=== PATIENT | female | born 1990 | race Hispanic/Latino ===

== ENCOUNTER 2018-05-23 09:13 | Emergency (ER) | payer BC, MEDICAID ==
[2018-05-23 09:23] VITALS: BMI 42.3
[2018-05-23 09:26] VITALS: TEMP 98.6
--- NOTE | 2018-05-23 09:57 | ED PDOC ---
Arrival/HPI - General Chief Complaint: Chest Pain Historian: Patient - History of Present Illness Narrative History of Present Illness (Text): 05/23/18 09:59 28 y/o female, no significant pmh, nkda, c/o epigastric pain x 1 months with no fall or trauma. Pt. stated that she has this pain on going for over 1 month, [place] [facility] [place] told it's gastritis and discharge home with pepcid but never resolved pain, no night sweat, no coughing, no shortness of breath or palpitation, no night sweat, no dizziness, no change in vision, no diarrhea, no lower abdominal pain, no other medical or psychological complaints. Past Medical History - Provider Review Nursing Documentation Reviewed: Yes - Infectious Disease Hx of Infectious Diseases: None - Reproductive Menopause: No - Gastrointestinal Hx Gastritis: Yes - Psychiatric Hx Substance Use: No - Anesthesia Hx Anesthesia: No Hx Anesthesia Reactions: No Hx Malignant Hyperthermia: No Family/Social History - Physician Review Nursing Documentation Reviewed: Yes Family/Social History: Unknown Family HX Smoking Status: Never Smoked Hx Alcohol Use: No Hx Substance Use: No Allergies/Home Meds Allergies/Adverse Reactions: Allergies No Known Allergies Allergy (Verified 05/23/18 09:57) Review of Systems - Review of Systems Constitutional: absent: Fatigue, Fevers Eyes: absent: Vision Changes ENT: absent: Hearing Changes Respiratory: absent: SOB, Cough Cardiovascular: absent: Chest Pain Gastrointestinal: Abdominal Pain. absent: Diarrhea, Nausea, Vomiting Genitourinary Female: absent: Dysuria, Frequency, Vaginal Bleeding Musculoskeletal: absent: Arthralgias, Back Pain Neurological: absent: Headache, Dizziness Psychiatric: absent: Anxiety, Depression, Suicidal Ideation Physical Exam Vital Signs Reviewed: Yes Vital Signs Temp Pulse Resp BP Pulse Ox 05/23/18 09:23 98.6 F 56 L 20 164/95 H 99 Temperature: Afebrile Blood Pressure: Hypertensive Pulse: Bradycardic Respiratory Rate: Normal Appearance: Positive for: Well-Appearing, Non-Toxic, Comfortable Pain Distress: None Mental Status: Positive for: Alert and Oriented X 3 - Systems Exam Head: Present: Atraumatic, Normocephalic Pupils: Present: PERRL Extroacular Muscles: Present: EOMI Conjunctiva: Present: Normal Mouth: Present: Moist Mucous Membranes Neck: Present: Normal Range of Motion Respiratory/Chest: Present: Clear to Auscultation, Good Air Exchange. No: Respiratory Distress, Accessory Muscle Use Cardiovascular: Present: Regular Rate and Rhythm, Normal S1, S2. No: Murmurs Abdomen: Present: Tenderness (epigastric tenderness. ), Normal Bowel Sounds. No: Distention, Peritoneal Signs, Rebound, Guarding, McBurney's Point Tender, Rovsing's Sign Present Back: Present: Normal Inspection Upper Extremity: Present: Normal Inspection. No: Cyanosis, Edema Lower Extremity: Present: Normal Inspection. No: Edema Neurological: Present: GCS=15, CN II-XII Intact, Speech Normal Skin: Present: Warm, Dry, Normal Color. No: Rashes Psychiatric: Present: Alert, Oriented x 3, Normal Insight, Normal Concentration Medical Decision Making ED Course and Treatment: 05/23/18 10:01 -labs -gallbladder sonogram -cxr -IV pepcid 05/23/18 12:44 -Urine hcg is negative -EKG: SB @ 57 BPM, no ST elevation or depression, T wave inversion lead III. -Gall bladder sonogram show Gallstones. NOTE: I personally called and spoke to Dr. Mckinney, radiologist for this reading and telling me that there is no gallbladder wall thickening/fluid or signs of cholecystitis, just gall stone. I repeated back to him and he confirmed there is no signs of cholecystitis. -CXR show No active disease. -Labs show no acute findings -Mg within normal limit -Lipase within normal limit -Trop after 24 hours is negative -Pt. feels completely relief, no pain now, limited relief with outpatient antiacid, will change to PPI and explained to her she needs outpatient GI endoscopy follow up. -Discharge home with prilosec and stop famotidine, follow up with your own pmd and GI within 2 days including if testing for h.pylori/endoscopy is needed, repeat your blood pressure with your own pmd as well, avoid acidic/sour/spicy/fried/grilled food, return to the ER for any new or worsening signs or symptoms. - RAD Interpretation Radiology Orders: Chest xray: Date of service: 05/23/2018 HISTORY: epigastric pain x 1 month COMPARISON: No prior. TECHNIQUE: Chest PA and lateral FINDINGS: LUNGS: No active pulmonary disease. PLEURA: No significant pleural effusion identified. No pneumothorax apparent. CARDIOVASCULAR: No aortic atherosclerotic calcification present. Normal cardiac size. No pulmonary vascular congestion. OSSEOUS STRUCTURES: No significant abnormalities. VISUALIZED UPPER ABDOMEN: Normal. OTHER FINDINGS: None. IMPRESSION: No active disease. Gallbladder sonogram: Date of service: 05/23/2018 HISTORY: epigastric pain x 1 month COMPARISON: None. TECHNIQUE: Sonographic evaluation of the right upper quadrant of the abdomen. FINDINGS: LIVER: Measures cm in length. Normal echogenicity of the liver parenchyma. No mass. No intrahepatic bile duct dilatation. GALLBLADDER: Gallstones COMMON BILE DUCT: Measures mm. No stones. No dilatation. PANCREAS: Unremarkable as visualized. No mass. No ductal dilatation. RIGHT KIDNEY: Measures cm in length. Normal echogenicity. No calculus, mass, or hydronephrosis. AORTA: No aneurysmal dilatation. IVC: Unremarkable. OTHER FINDINGS: None . IMPRESSION: Gallstones. NOTE: I personally called and spoke to Dr. Mckinney, radiologist for this reading and telling me that there is no gallbladder wall thickening/fluid or signs of cholecystitis, just gall stone. I repeated back to him and he confirmed there is no signs of cholecystitis. Tab Builder: Radiologist - EKG Interpretation EKG Interpretation (Text): 05/23/18 10:10 SB @ 57 BPM, no ST elevation or depression, T wave inversion lead III. Interpreted by ED Physician: Yes Type: 12 lead EKG - PA / WAFER FABRICATION TECHNICIAN / Resident Statement MD/DO has reviewed & agrees with the documentation as recorded. Disposition/Present on Arrival - Present on Arrival Any Indicators Present on Arrival: No History of DVT/PE: No History of Uncontrolled Diabetes: No Urinary Catheter: No History of Decub. Ulcer: No History Surgical Site Infection Following: None - Disposition Have Diagnosis and Disposition been Completed?: Yes Diagnosis: Epigastric abdominal pain, Gastritis Disposition: HOME/ ROUTINE Disposition Time: 12:48 Patient Plan: Discharge Condition: IMPROVED Additional Instructions: -Discharge home with prilosec and stop famotidine, follow up with your own pmd and GI within 2 days including if testing for h.pylori/endoscopy is needed, repeat your blood pressure with your own pmd as well, avoid acidic/sour/spicy/fried/grilled food, return to the ER for any new or worsening signs or symptoms. Prescriptions: Omeprazole Magnesium [Prilosec Otc] 20 mg PO DAILY #30 tcp Referrals: Lam Ruby MD [Staff Provider] - [place] up [place] [facility] [place] [facility] [place] - Follow up with primary Forms: [facility] ([place]an), WORK NOTE
[2018-05-23] MEDS ORDERED: Sodium Chloride 0.9% 1,000 ML IV STA (09:58)
[2018-05-23 10:35] LABS: ALB/GLOB RATIO 1.2 (1.1-1.8); ALBUMIN 4.2 g/dL (3.0-4.8); ALT/SGPT 37 U/L (7-56); AST/SGOT 27 U/L (14-36); BLOOD UREA NITROGEN 14 mg/dL (7-21); CALCIUM 9.2 mg/dL (8.4-10.5); GFR NON-AFRICAN AMERICAN > 60; LIPASE 24 U/L (23-300)
[2018-05-23 10:36] LABS: BASO # 0.01 K/mm3 (0.0-2.0); BASO % 0.1 % (0.0-3.0); GRAN # 8.05 (1.4-6.5); GRAN % 83.6 % (50.0-68.0); LYMPH # 1.2 (1.2-3.4); LYMPH % 12.7 % (22.0-35.0); MEAN CORPUSCULAR HEMOGLOBIN 27.6 pg (25.0-35.0); MEAN CORPUSCULAR HGB CONC 33.7 g/dl (31.0-37.0); MEAN PLATELET VOLUME 9.9 fl (7.0-11.0); MONO # 0.4 (0.1-0.6); MONO % 3.6 % (1.0-6.0); RBC 4.71 10^6/uL (3.5-6.1); RED CELL DISTRIBUTION WIDTH 13.1 % (11.5-14.5); WHITE BLOOD COUNT 9.6 10^3/uL (4.5-11.0)
[2018-05-23 10:47] LABS: TROPONIN I < 0.01 ng/mL
[2018-05-23 11:08] VITALS: RESP 18
--- NOTE | 2018-05-23 12:06 | RAD ---
Date of service: 05/23/2018 HISTORY: epigastric pain x 1 month COMPARISON: No prior. TECHNIQUE: Chest PA and lateral FINDINGS: LUNGS: No active pulmonary disease. PLEURA: No significant pleural effusion identified. No pneumothorax apparent. CARDIOVASCULAR: No aortic atherosclerotic calcification present. Normal cardiac size. No pulmonary vascular congestion. OSSEOUS STRUCTURES: No significant abnormalities. VISUALIZED UPPER ABDOMEN: Normal. OTHER FINDINGS: None. IMPRESSION: No active disease.
--- NOTE | 2018-05-23 12:40 | US ---
Date of service: 05/23/2018 HISTORY: epigastric pain x 1 month COMPARISON: None. TECHNIQUE: Sonographic evaluation of the right upper quadrant of the abdomen. FINDINGS: LIVER: Measures cm in length. Normal echogenicity of the liver parenchyma. No mass. No intrahepatic bile duct dilatation. GALLBLADDER: Gallstones COMMON BILE DUCT: Measures mm. No stones. No dilatation. PANCREAS: Unremarkable as visualized. No mass. No ductal dilatation. RIGHT KIDNEY: Measures cm in length. Normal echogenicity. No calculus, mass, or hydronephrosis. AORTA: No aneurysmal dilatation. IVC: Unremarkable. OTHER FINDINGS: None . IMPRESSION: Gallstones.
[2018-05-23 13:01] VITALS: BP 152/69; PULSE 61; O2SAT 99
--- NOTE | 2018-05-23 13:32 | CARD ---
APPROVED REPORT Date of service: 05/23/2018 EKG Measurement Heart [id number] AR 122P-6 [id number] <Conclusion> Sinus bradycardia with sinus arrhythmia Otherwise normal ECG
== END 2018-05-23 13:07 | disposition home or self-care (01) ==
LOC: ED 09:13
DX: K29.70 Gastritis, unspecified, without bleeding (principal)
CPT/HCPCS: 71046; 76705; 80053; 83690; 83735; 84484; 84703; 85025; 93005; 96374; 99283; J7030